=== PATIENT | male | born 1950 | race Caucasian/White ===

== ENCOUNTER 2020-12-23 10:01 | Inpatient (IN) ==
[2020-12-23] MEDS ORDERED: PIPERACILLIN SODIUM/TAZOBACTAM 3.375 GM in DEXTROSE 5% IN WATER 50 ML IV ONE (10:04)
--- NOTE | 2020-12-23 10:11 | Emergency Department Note ---
HPI <Christine Mcbride PA-C - Last Filed: 12/23/20 21:38> General Chief complaint: Wound/Laceration Stated complaint: Right foot wound Time Seen by Provider: 12/23/20 10:05 Mode of arrival: ambulatory History of Present Illness HPI Narrative: This patient presents from wound care with complaint of infection to the right foot. He has been following with wound care regarding this. He was seen today with concerns for osteomyelitis. Provider is able to probe to bone. Patient has known peripheral vascular disease and is currently everyday smoker. He is without fevers, chills, nausea or vomiting. He denies any trauma or injury. Related Data Home Medications Medication Instructions Recorded Confirmed Yarrow 1 tab PO QDAY 11/12/20 12/23/20 ascorbic acid (vitamin C) 1,000 mg 1 g PO QDAY tab 11/12/20 12/23/20 tablet omeprazole 20 mg tablet,delayed 20 mg PO QDAY 11/12/20 12/23/20 release alpha lipoic acid 600 mg capsule 600 mg PO QDAY 11/17/20 12/23/20 cinnachroma-chromium, vitamin D 2 tab PO DAILY 11/17/20 12/23/20 125mcg, vitamin K2, Selenium, vanadium, and cinnamon loratadine-pseudoephedrine ER 10 1 tab PO QDAY PRN 11/17/20 12/23/20 mg-240 mg tablet,extended [id number] testosterone wellness supplement 2 tab PO DAILY 11/17/20 12/23/20 veggies and fruits supplement 6 tab PO DAILY 11/17/20 12/23/20 Previous Rx's Medication Instructions Recorded blood sugar diagnostic #100 ea 11/17/20 blood-glucose meter #1 ea 11/17/20 lancets 33 gauge #100 ea 11/17/20 pioglitazone 30 mg tablet 30 mg PO QDAY #60 tab 11/17/20 glipizide 5 mg tablet 5 mg PO BID #120 tab 11/18/20 bupropion HCl 150 mg tablet,12 hr See Rx Instructions PO BID 90 Days 12/22/20 sustained-release #180 ea gabapentin 100 mg capsule 100 - 300 mg PO QHS #90 cap 12/23/20 Allergies Allergy/AdvReac Type Severity Reaction Status Date / Time No Known Drug Allergies Allergy Verified 12/23/20 10:08 Review of Systems <Christine Mcbride PA-C - Last Filed: 12/23/20 21:38> ROS ROS Narrative: Narrative: Pertinent positives and negatives as noted in HPI. All other systems reviewed and negative. PFSH <Christine Mcbride PA-C - Last Filed: 12/23/20 21:38> Narrative Patient History Narrative: Narrative: Medical/Surgical/Family History All Active Problems (Updated 12/23/20 @ 21:38 by Christine Mcbride PA-C) Osteomyelitis (Acute) GERD (gastroesophageal reflux disease) (Acute) Tobacco abuse (Chronic) Type 2 diabetes mellitus (Chronic) Hayfever (Acute) Diabetic foot ulcer (Acute) Medical History Hayfever Type 2 diabetes mellitus A1c improved 9.9% today States intolerance to Metformin Continue glipizide 5 mg twice daily and pioglitazone 30 mg daily Continue monitoring blood glucose twice daily Continue with heart specialist and dietitian Referred to optometry for diabetic eye exam Follow-up in 3 months with blood sugar logs Surgical History History of back surgery x 3, lover lumbar History of hernia surgery navel History of shoulder surgery Left Family History Uncle Type 2 diabetes mellitus Social History Smoking Status: Current every day smoker Alcohol Intake Frequency: 0-2 drinks per day Substance Use: does not use Exam <Christine Mcbride PA-C - Last Filed: 12/23/20 21:38> Narrative Narrative: Narrative: Vital signs noted General: no distress. Skin: Warm. Dry. No rash. Normal color. Eyes: PERRL. EOMI. Neck: Good ROM. No meningeal signs. Supple. Cardiovascular: Regular rate and rhythm. No murmur. Respiratory: No respiratory distress. Breath sounds equal. No wheezing/rales/rhonchi. Gastrointestinal: Abdomen soft. No tenderness. No distention. Normal bowel sounds. No rebound tenderness or guarding. Back: Normal inspection. No CVA tenderness. No midline tenderness. Extremities: Ulceration to the sole of the right foot. Bone can be probed. Warm. Neurological: No focal neurological deficits observed. Alert. Oriented x 3 Course <Christine Mcbride PA-C - Last Filed: 12/23/20 21:38> Course Course Narrative: An IV is established. Inflammatory markers are drawn. CT without contrast of the right foot and ankle are reported by radiology to be consistent with osteomyelitis as well as cellulitis. Inflammatory markers are elevated. I had offer to obtain blood cultures and wound cultures, however wound care advised this was not necessary. Vancomycin and Zosyn are requested. These medications are ordered and started for the patient while in the emergency department. He is discussed with the hospitalist service for admission of osteomyelitis Vital Signs Vital signs: Vital Signs Temperature 97.8 F 12/23/20 10:03 Pulse Rate 91 H 12/23/20 10:03 Respiratory Rate 18 12/23/20 10:03 Blood Pressure 126/77 12/23/20 10:03 Pulse Oximetry (%) 99 12/23/20 10:03 Temperature 98.3 F 12/24/20 04:00 Pulse Rate 82 12/24/20 04:00 Respiratory Rate 16 12/24/20 04:00 Blood Pressure 120/71 12/24/20 04:00 Pulse Oximetry (%) 95 12/24/20 04:00 <George Muse MD - Last Filed: 12/24/20 07:58> Vital Signs Vital signs: Vital Signs Temperature 97.8 F 12/23/20 10:03 Pulse Rate 91 H 12/23/20 10:03 Respiratory Rate 18 12/23/20 10:03 Blood Pressure 126/77 12/23/20 10:03 Pulse Oximetry (%) 99 12/23/20 10:03 Temperature 98.3 F 12/24/20 04:00 Pulse Rate 82 12/24/20 04:00 Respiratory Rate 16 12/24/20 04:00 Blood Pressure 120/71 12/24/20 04:00 Pulse Oximetry (%) 95 12/24/20 04:00 MDM <Christine Mcbride PA-C - Last Filed: 12/23/20 21:38> MDM Narrative Medical decision making narrative: Narrative: Lab Data Result diagrams: 12/24/20 05:35 12/24/20 05:34 Labs: Lab Results 12/23/20 12/23/20 Range/Units 10:22 10:22 WBC 9.6 (4.5-11.0) K/mcL RBC 4.78 (4.50-5.90) M/mcL Hgb 14.1 (13.5-16.5) g/dL Hct 42.1 (41.0-55.0) % MCV 88.1 (80.0-100.0) fL MCH 29.5 (26.0-34.0) pg MCHC 33.5 (31.0-36.0) g/dL RDW 12.4 (11.5-14.5) % Plt Count 378 (140-440) K/mcL MPV 9.7 (7.4-10.4) fL Neut % (Auto) 69.0 (38.0-78.0) % Lymph % (Auto) 17.1 (15.0-49.0) % [place] % (Auto) 11.7 (1.0-12.0) % Eos % (Auto) 2.0 (0.0-7.0) % Baso % (Auto) 0.2 (0.0-2.0) % Lymph # (Auto) 1.65 (1.50-4.80) K/mcL [place] # (Auto) 1.13 H (0.10-0.90) K/mcL Eos # (Auto) 0.19 (0.00-0.70) K/mcL Baso # (Auto) 0.02 (0.00-0.20) K/mcL Absolute Neutrophils 6.65 (1.80-8.00) K/mcL ESR 44 H (0-15) mm/hr Sodium 133 (133-145) mmol/L Potassium 4.0 (3.3-5.1) mmol/L Chloride 95 L (96-108) mmol/L Carbon Dioxide 26 (22-30) mmol/L Anion Gap 12.0 (8.0-16.0) BUN 12 (8-23) mg/dL Creatinine 0.7 (0.7-1.2) mg/dL GFR Calculation 94 Glucose 147 H (70-105) mg/dL Calcium 9.1 (8.6-10.4) mg/dL Total Bilirubin 0.4 (0.1-1.0) mg/dL AST 15 (<40) U/L ALT 9 (<40) U/L Alkaline Phosphatase 73 (39-117) U/L C-React Prot High Sens 119.3 H (1.0-3.0) mg/L Total Protein 7.4 (5.9-8.4) gm/dL Albumin 4.1 (3.2-5.2) gm/dL Globulin 3.3 (2.2-3.7) gm/dL Albumin/Globulin Ratio 1.2 (1.0-2.3) <George Muse MD - Last Filed: 12/24/20 07:58> Lab Data Labs: Lab Results 12/23/20 12/23/20 Range/Units 10:22 10:22 WBC 9.6 (4.5-11.0) K/mcL RBC 4.78 (4.50-5.90) M/mcL Hgb 14.1 (13.5-16.5) g/dL Hct 42.1 (41.0-55.0) % MCV 88.1 (80.0-100.0) fL MCH 29.5 (26.0-34.0) pg MCHC 33.5 (31.0-36.0) g/dL RDW 12.4 (11.5-14.5) % Plt Count 378 (140-440) K/mcL MPV 9.7 (7.4-10.4) fL Neut % (Auto) 69.0 (38.0-78.0) % Lymph % (Auto) 17.1 (15.0-49.0) % [place] % (Auto) 11.7 (1.0-12.0) % Eos % (Auto) 2.0 (0.0-7.0) % Baso % (Auto) 0.2 (0.0-2.0) % Lymph # (Auto) 1.65 (1.50-4.80) K/mcL [place] # (Auto) 1.13 H (0.10-0.90) K/mcL Eos # (Auto) 0.19 (0.00-0.70) K/mcL Baso # (Auto) 0.02 (0.00-0.20) K/mcL Absolute Neutrophils 6.65 (1.80-8.00) K/mcL ESR 44 H (0-15) mm/hr Sodium 133 (133-145) mmol/L Potassium 4.0 (3.3-5.1) mmol/L Chloride 95 L (96-108) mmol/L Carbon Dioxide 26 (22-30) mmol/L Anion Gap 12.0 (8.0-16.0) BUN 12 (8-23) mg/dL Creatinine 0.7 (0.7-1.2) mg/dL GFR Calculation 94 Glucose 147 H (70-105) mg/dL Calcium 9.1 (8.6-10.4) mg/dL Total Bilirubin 0.4 (0.1-1.0) mg/dL AST 15 (<40) U/L ALT 9 (<40) U/L Alkaline Phosphatase 73 (39-117) U/L C-React Prot High Sens 119.3 H (1.0-3.0) mg/L Total Protein 7.4 (5.9-8.4) gm/dL Albumin 4.1 (3.2-5.2) gm/dL Globulin 3.3 (2.2-3.7) gm/dL Albumin/Globulin Ratio 1.2 (1.0-2.3) Discharge Plan Patient/Caregiver Discharge Instructions Pt seen by [facility] [employer]/PA only: Yes Clinical Impression: Osteomyelitis Qualifiers: Osteomyelitis type: unspecified type Osteomyelitis location: foot Laterality: right Qualified Code(s): M86.9 - Osteomyelitis, unspecified Patient Disposition: Xfer As Inpt ([facility]) Discharge Date/Time: 12/23/20 15:48
[2020-12-23 11:14] LABS: Basophils # (Auto) 0.02 K/mcL (0.00-0.20); Basophils % (Auto) 0.2 % (0.0-2.0); Eosinophils # (Auto) 0.19 K/mcL (0.00-0.70); Hematocrit 42.1 % (41.0-55.0); Hemoglobin 14.1 g/dL (13.5-16.5); Lymphocytes # (Auto) 1.65 K/mcL (1.50-4.80); Lymphocytes % (Auto) 17.1 % (15.0-49.0); Mean Cell Volume 88.1 fL (80.0-100.0); Mean Corpuscular HGB Conc 33.5 g/dL (31.0-36.0); Mean Platelet Volume 9.7 fL (7.4-10.4); Monocytes # (Auto) 1.13 K/mcL (0.10-0.90); Monocytes % (Auto) 11.7 % (1.0-12.0); Platelet Count 378 K/mcL (140-440); RBC 4.78 M/mcL (4.50-5.90); Red Cell Distribution Width 12.4 % (11.5-14.5); WBC 9.6 K/mcL (4.5-11.0)
[2020-12-23 11:40] LABS: ALT/SGPT 9 U/L (<40); AST/SGOT 15 U/L (<40); Albumin 4.1 gm/dL (3.2-5.2); Albumin/Globulin Ratio 1.2 (1.0-2.3); Alkaline Phosphatase 73 U/L (39-117); Bilirubin,Total 0.4 mg/dL (0.1-1.0); Blood Urea Nitrogen 12 mg/dL (8-23); Calcium 9.1 mg/dL (8.6-10.4); Carbon Dioxide 26 mmol/L (22-30); Chloride 95 mmol/L (96-108); Globulin 3.3 gm/dL (2.2-3.7); Glomerular Filtration Rate 94; Glucose 147 mg/dL (70-105)
[2020-12-23 12:06] LABS: CRP,High Sensitivity 119.3 mg/L (1.0-3.0)
--- NOTE | 2020-12-23 12:26 | Cat Scan Report ---
CLINICAL INFORMATION: Probable osteomyelitis in the first and second proximal phalanges COMPARISON: Abdomen film 12/16/2020 TECHNIQUE: 0.625 mm helical slices were obtained through the distal one third of the tibia fibula through the foot and ankle. Following reconstruction, 2.5 m sagittal, coronal and axial reformatted images were processed and reviewed at bone and soft tissue windows. FINDINGS: Bone windows show severe hammertoe deformities the first through fifth digits. Complete erosion first proximal phalanx dorsal base and partial erosion of the plantar base appreciated. There is also moderate erosive changes in the medial and lateral sesamoids of the first metatarsal head. In the second digit, moderate erosion of the dorsal cortex of the distal aspect of the proximal phalanx noted. No other osseous abnormality. There is moderate spurring of the plantar and mild spurring of the Achilles tendon insertion on the calcaneus.. Moderate degenerative change in all interphalangeal and first MTP joints. Moderate cellulitis and fasciitis seen throughout the forefoot and midfoot. No evidence of soft tissue abscess or foreign body. There are is a plantar cutaneous ulceration over the first metatarsal head. IMPRESSION: 1. Moderate erosive changes of the plantar and dorsal base of the first proximal phalanx. This is supportive of osteomyelitis. 2. Moderate erosion dorsal cortex of the distal aspect of the second proximal phalanx which may be related old trauma or, less likely, osteomyelitis. 3. Marked hammertoe deformities-first through fifth digits 4. Marked cellulitis and fasciitis-forefoot and midfoot. Interpreted and Authenticated by: Livan Arnold 12/23/20
[2020-12-23 12:30] LABS: Erythrocyte Sedimentation Rate 44 mm/hr (0-15)
[2020-12-23] MEDS ORDERED: NICOTINE 14 MG PATCH TOPICAL ONE (14:19)
[2020-12-23] MEDS ORDERED: ONDANSETRON 4 MG/2 ML VIAL IV PRN (19:17)
[2020-12-23] MEDS ORDERED: ACETAMINOPHEN 325 MG TABLET PO PRN (19:18)
[2020-12-23] MEDS ORDERED: VANCOMYCIN PER PHARMACY IV SCH (19:18)
[2020-12-23] MEDS ORDERED: DEXTROSE 31 GM ORAL.SUSP PO PRN (19:18)
[2020-12-23] MEDS ORDERED: oxyCODONE/APAP 5/325MG TABLET PO PRN (19:18)
[2020-12-23] MEDS ORDERED: DEXTROSE 50% 50 ML VIAL IV PRN (19:18)
--- NOTE | 2020-12-23 19:37 | Internal Med History&Physical ---
HPI History of Present Illness Patient information: Note initiated : 12/23/20 at 7:23 pm Service Date, if different from initiated Date: [] Patient: John Schuster 70 y/o M admitted on 12/23/20 for Right foot wound. Chief Complaint: [] History of present illness: Mr. Schuster is a 70 year old male with a history of diabetes mellitus type 2 on oral medications, tobacco use disorder, nonhealing right diabetic foot wound being followed by wound care clinic now admitted for other management diabetic foot wound which is now complicated by osteomyelitis of the first proximal phalanx of the right foot as well as second proximal phalanx. Patient endorses chills and high-grade temperatures but has not had a fever. In the ED, there was no leukocytosis, routine lab work was fairly unremarkable, CRP was 119. Patient's last hemoglobin was 9.9. Review of systems Constitutional: positive for chills, no fever, fatigue, or weight loss Eyes: no vision changes or pain Cardiovascular: no chest pain, no palpitations Respiratory: no cough or dyspnea Gastrointestinal: no abdominal pain, no nausea, vomiting, or diarrhea Genitourinary: no dysuria or difficulty voiding Musculoskeletal: positive for claudication Integumentary: nonhealing right foot wound Neurological: no focal weakness or numbness Psychiatric: no anxiety or depression Physical exam Head: Atraumatic, normal inspection. Eyes: normal appearance, no scleral icterus. Neck: full ROM Respiratory: no respiratory distress. Cardiovascular: normal rate and rhythm, S1, S2. GI/Abdominal: soft, nontender, no guarding. Extremities: Right distal foot cellulitis at first and second toes, chronic appearing wound at plantar aspect of first metatarsal phalangeal jount. Neurological: CN II-XII intact, intact motor, intact sensation. Psychiatric: normal mood. Skin: warm, normal color PFSH PFSH All Active Problems GERD (gastroesophageal reflux disease) (Acute) Tobacco abuse (Chronic) Type 2 diabetes mellitus (Chronic) Hayfever (Acute) Diabetic foot ulcer (Acute) Medical History Hayfever Type 2 diabetes mellitus A1c improved 9.9% today States intolerance to Metformin Continue glipizide 5 mg twice daily and pioglitazone 30 mg daily Continue monitoring blood glucose twice daily Continue with nursing educator and dietitian Referred to optometry for diabetic eye exam Follow-up in 3 months with blood sugar logs Surgical History History of back surgery x 3, lover lumbar History of hernia surgery navel History of shoulder surgery Left Family History Uncle Type 2 diabetes mellitus Social History marital status: occupational status: retired smoking status: Current every day smoker alcohol intake frequency: 0-2 drinks per day substance use type: does not use MEDS/ALLERGIES Home Medications and Allergies Home Medications Medication Instructions Recorded Confirmed Type Yarrow 1 tab PO QDAY 11/12/20 12/23/20 History ascorbic acid (vitamin C) 1,000 mg 1 g PO QDAY tab 11/12/20 12/23/20 History tablet omeprazole 20 mg tablet,delayed 20 mg PO QDAY 11/12/20 12/23/20 History release alpha lipoic acid 600 mg capsule 600 mg PO QDAY 11/17/20 12/23/20 History blood sugar diagnostic #100 ea 11/17/20 12/23/20 Rx blood-glucose meter #1 ea 11/17/20 12/23/20 Rx cinnachroma-chromium, vitamin D 2 tab PO DAILY 11/17/20 12/23/20 History 125mcg, vitamin K2, Selenium, vanadium, and cinnamon lancets 33 gauge #100 ea 11/17/20 12/23/20 Rx loratadine-pseudoephedrine ER 10 1 tab PO QDAY PRN 11/17/20 12/23/20 History mg-240 mg tablet,extended [id number] pioglitazone 30 mg tablet 30 mg PO QDAY #60 tab 11/17/20 12/23/20 Rx testosterone wellness supplement 2 tab PO DAILY 11/17/20 12/23/20 History veggies and fruits supplement 6 tab PO DAILY 11/17/20 12/23/20 History glipizide 5 mg tablet 5 mg PO BID #120 tab 11/18/20 12/23/20 Rx bupropion HCl 150 mg tablet,12 hr See Rx Instructions PO BID 90 Days 12/22/20 12/23/20 Rx sustained-release #180 ea gabapentin 100 mg capsule 100 - 300 mg PO QHS #90 cap 12/23/20 12/23/20 Rx Allergies Allergy/AdvReac Type Severity Reaction Status Date / Time No Known Drug Allergies Allergy Verified 12/23/20 10:08 EXAM Constitutional Vitals: Temp Pulse Resp BP Pulse Ox 97.6 F 72 16 125/72 95 12/23/20 15:48 12/23/20 15:48 12/23/20 15:48 12/23/20 15:48 12/23/20 15:48 DATA Data Completed and Pending Labs: Labs from last 24 hours 12/23/20 12/23/20 10:22 10:22 WBC 9.6 RBC 4.78 Hgb 14.1 Hct 42.1 MCV 88.1 MCH 29.5 MCHC 33.5 RDW 12.4 Plt Count 378 MPV 9.7 Neut % (Auto) 69.0 Lymph % (Auto) 17.1 [place] % (Auto) 11.7 Eos % (Auto) 2.0 Baso % (Auto) 0.2 Lymph # (Auto) 1.65 [place] # (Auto) 1.13 H Eos # (Auto) 0.19 Baso # (Auto) 0.02 Absolute Neutrophils 6.65 ESR 44 H Sodium 133 Potassium 4.0 Chloride 95 L Carbon Dioxide 26 Anion Gap 12.0 BUN 12 Creatinine 0.7 GFR Calculation 94 Glucose 147 H Calcium 9.1 Total Bilirubin 0.4 AST 15 ALT 9 Alkaline Phosphatase 73 C-React Prot High Sens 119.3 H Total Protein 7.4 Albumin 4.1 Globulin 3.3 Albumin/Globulin Ratio 1.2 A/P Narrative A/P Narrative: Assessment: 70 year old male with a history of diabetes mellitus type 2 on oral medications, tobacco use disorder, nonhealing right diabetic foot complicated by probable osteomyelitis of first proximal phalanx and possibly the second proximal phalanx admitted for further evaluation and management. #Nonhealing diabetic right foot wound #Probable osteomyelitis of right first phalanx #Possible osteomyelitis of right second phalanx #Right foot cellulitis secondary to chronic wound #Probable peripheral arterial disease #Diabetes mellitus type II-Hgb A1C 9.9 #Tobacco use disorder Plan -Arterial Brachial Index, expand vascular workup if positive KIMANI. -Wound swab MRSA screen -Vancomycin IV per pharmacy, Cefepime IV, Flagyl IV. -SSI-low, consider adding basal insulin. -Hold home glipizide and pioglitazone. -Analgesics prn. -NPO at midnight. -Nicotine patch/gum. -Wound surgery consult-please consider obtaining proximal margin surgical cultures in case of amputation for osteomyelitis. -Code status: Full -Disposition: TBD Time Spent With Patient Time: Total time spent is greater than 50% in coordination of care (as documented) at patient's floor/unit and/or counseling patient: QUALITY Stroke Symptom Onset Unknown: No VTE Deep Vein Thrombosis/Pulmonary Embolism Present on Admission: Yes
[2020-12-23] MEDS ORDERED: NICOTINE POLACRILEX 2 MG GUM CHEW/PARK PRN (19:56)
[2020-12-23] MEDS: NICOTINE 14 MG PATCH TOPICAL SCH (20:09)
--- NOTE | 2020-12-23 20:39 | General Surgery Consult Note ---
HPI Data of Consult Consult date: 12/23/20 Requesting physician: Antony Elliott Primary Care Provider: Livan Jennings DO Consult Narrative Patient Information: Note initiated : 12/23/20 at 8:17 pm Service Date, if different from initiated Date: [] Patient: John Schuster 70 y/o M admitted on 12/23/20 for CELLULITIS around DFU Roberts 3, Plantar Right foot under 1st MPJ Chief Complaint: [70/M Established patient at wound care center. Was noted to have acute deterioration of his wound with foul odor from the wound and cellulitis involving great toe and proximal forefoot. ] Chief complaint: Infected DFU plantar RIGHT great toe MPJ. Cellulitis, Foul odor with eschar Reason for consult: Wound Care and possible surgery after pre op vascular assessment. cc:: CC: Antony Elliott MD Constitutional Constitutional: Present chills and fever(s) Additional comments: Foul odor from ulcer and wound bed. Integumentary Integumentary: Present as per HPI and wounds Additional comments: DFU Roberts Stage 3. Probes to bone. Foul odor. Cellulitis around base of RIGHT great toe extending proximally. Neurological Additional comments: Diabetes with peripheral neuropathy PFSH PFSH All Active Problems (Updated 12/23/20 @ 21:38 by Christine Mcbride PA-C) Osteomyelitis (Acute) GERD (gastroesophageal reflux disease) (Acute) Tobacco abuse (Chronic) Type 2 diabetes mellitus (Chronic) Hayfever (Acute) Diabetic foot ulcer (Acute) Medical History Hayfever Type 2 diabetes mellitus A1c improved 9.9% today States intolerance to Metformin Continue glipizide 5 mg twice daily and pioglitazone 30 mg daily Continue monitoring blood glucose twice daily Continue with family life educator and dietitian Referred to optometry for diabetic eye exam Follow-up in 3 months with blood sugar logs Surgical History History of back surgery x 3, lover lumbar History of hernia surgery navel History of shoulder surgery Left Family History Uncle Type 2 diabetes mellitus Social History marital status: occupational status: retired smoking status: Current every day smoker alcohol intake frequency: 0-2 drinks per day substance use type: does not use MEDS/ALLERGIES Home Medications and Allergies Home Medications Medication Instructions Recorded Confirmed Type Yarrow 1 tab PO QDAY 11/12/20 12/23/20 History ascorbic acid (vitamin C) 1,000 mg 1 g PO QDAY tab 11/12/20 12/23/20 History tablet omeprazole 20 mg tablet,delayed 20 mg PO QDAY 11/12/20 12/23/20 History release alpha lipoic acid 600 mg capsule 600 mg PO QDAY 11/17/20 12/23/20 History blood sugar diagnostic #100 ea 11/17/20 12/23/20 Rx blood-glucose meter #1 ea 11/17/20 12/23/20 Rx cinnachroma-chromium, vitamin D 2 tab PO DAILY 11/17/20 12/23/20 History 125mcg, vitamin K2, Selenium, vanadium, and cinnamon lancets 33 gauge #100 ea 11/17/20 12/23/20 Rx loratadine-pseudoephedrine ER 10 1 tab PO QDAY PRN 11/17/20 12/23/20 History mg-240 mg tablet,extended [id number] pioglitazone 30 mg tablet 30 mg PO QDAY #60 tab 11/17/20 12/23/20 Rx testosterone wellness supplement 2 tab PO DAILY 11/17/20 12/23/20 History veggies and fruits supplement 6 tab PO DAILY 11/17/20 12/23/20 History glipizide 5 mg tablet 5 mg PO BID #120 tab 11/18/20 12/23/20 Rx bupropion HCl 150 mg tablet,12 hr See Rx Instructions PO BID 90 Days 12/22/20 12/23/20 Rx sustained-release #180 ea gabapentin 100 mg capsule 100 - 300 mg PO QHS #90 cap 12/23/20 12/23/20 Rx Allergies Allergy/AdvReac Type Severity Reaction Status Date / Time No Known Drug Allergies Allergy Verified 12/23/20 10:08 Physical Examination Vital Signs Vital signs: Temp Pulse Resp BP Pulse Ox 97.6 F 72 16 125/72 95 12/23/20 15:48 12/23/20 15:48 12/23/20 15:48 12/23/20 15:48 12/23/20 15:48 General physical appearance General physical exam: well developed, well nourished, no distress and no pain Eyes Eye exam: PERRL and normal ocular movement ENT ENT exam: normal pinna, normal nares and no congestion Head Head exam IM: Present atraumatic and normocephalic Neck Neck exam: no masses and no venous distension Cardiovascular Cardiovascular exam IM: Present normal rate and rhythm Peripheral pulses: 2+: dorsalis pedis (R) and posterior tibialis (L) Respiratory Respiratory exam: normal expansion and clear to auscultation Abdomen Abdomen: Present soft, non tender and bowel sounds Integumentary Integumentary: Present other (Open plantar wound DFU Stage 3 Probes to synovium and joint capsule. ) Neurologic Neurologic: Present other (NO gross lateralizing signs. Peripheral neuropathy) Musculoskeletal Musculoskeletal: Present normal gait and other (OPEN wound under RIGHT great toe probes to MPJ. Slough in wound bed. ) Psychiatric Psychiatric: Present oriented to time, oriented to person, oriented to place, speech is normal and memory intact Results Labs Result diagrams: 12/24/20 05:35 12/24/20 05:34 Labs: Abnormal lab results 12/23/20 12/23/20 Range/Units 10:22 10:22 [place] # (Auto) 1.13 H (0.10-0.90) K/mcL ESR 44 H (0-15) mm/hr Chloride 95 L (96-108) mmol/L Glucose 147 H (70-105) mg/dL C-React Prot High Sens 119.3 H (1.0-3.0) mg/L Diabetes panel 12/23/20 Range/Units 10:22 Sodium 133 (133-145) mmol/L Potassium 4.0 (3.3-5.1) mmol/L Chloride 95 L (96-108) mmol/L Carbon Dioxide 26 (22-30) mmol/L BUN 12 (8-23) mg/dL Creatinine 0.7 (0.7-1.2) mg/dL Glucose 147 H (70-105) mg/dL Calcium 9.1 (8.6-10.4) mg/dL AST 15 (<40) U/L ALT 9 (<40) U/L Alkaline Phosphatase 73 (39-117) U/L Total Protein 7.4 (5.9-8.4) gm/dL Albumin 4.1 (3.2-5.2) gm/dL Calcium panel 12/23/20 Range/Units 10:22 Calcium 9.1 (8.6-10.4) mg/dL Albumin 4.1 (3.2-5.2) gm/dL Pituitary panel 12/23/20 Range/Units 10:22 Sodium 133 (133-145) mmol/L Potassium 4.0 (3.3-5.1) mmol/L Chloride 95 L (96-108) mmol/L Carbon Dioxide 26 (22-30) mmol/L BUN 12 (8-23) mg/dL Creatinine 0.7 (0.7-1.2) mg/dL Glucose 147 H (70-105) mg/dL Calcium 9.1 (8.6-10.4) mg/dL Adrenal panel 12/23/20 Range/Units 10:22 Sodium 133 (133-145) mmol/L Potassium 4.0 (3.3-5.1) mmol/L Chloride 95 L (96-108) mmol/L Carbon Dioxide 26 (22-30) mmol/L BUN 12 (8-23) mg/dL Creatinine 0.7 (0.7-1.2) mg/dL Glucose 147 H (70-105) mg/dL Calcium 9.1 (8.6-10.4) mg/dL Total Bilirubin 0.4 (0.1-1.0) mg/dL AST 15 (<40) U/L ALT 9 (<40) U/L Alkaline Phosphatase 73 (39-117) U/L Total Protein 7.4 (5.9-8.4) gm/dL Albumin 4.1 (3.2-5.2) gm/dL All other labs normal. A/P Narrative A/P Narrative: Assessment: DFU Stage 3 RIGHT plantar under MPJ peripheral neuropathy PAD. Awaits evaluation and / or treatment by Dr. CHAVARRIA Nicotine dependence, Alcohol consumption daily Plan: MIST treatment and aggressive local wound care Physical therapy consult for off loading and roll about scooter PICC LINE , IV antibiotics Start with broad coverage, Deescalate per culture reports. I D consult Dr. Almeida, when he is back in town. Time Spent With Patient Time: Total time spent is greater than 50% in coordination of care (as documented) at patient's floor/unit and/or counseling patient: Total time spent with greater than 50% in coordination of care (as documented) at patient's floor/unit and/or counseling patient:: 25 - 35 minutes
[2020-12-23] MEDS: INSULIN LISPRO 1 UNIT/0.01 ML UNIT SQ SCH (21:29)
[2020-12-23] MEDS: SENNOSIDES 1 TABLET PO SCH (21:30)
[2020-12-23] MEDS: DOCUSATE SODIUM 100 MG CAPSULE PO SCH (21:30)
[2020-12-23] MEDS: VANCOMYCIN 1,000 MG in 0.9 % SODIUM CHLORIDE 250 ML IV SCH (21:32)
[2020-12-23] MEDS: CEFEPIME 2 GM VIAL IV SCH (22:45)
[2020-12-23] MEDS: 0.9 % SODIUM CHLORIDE 10 ML SYRINGE IV SCH (22:45)
[2020-12-23] MEDS: metroNIDAZOLE 500 MG/100 ML BAG IV SCH (22:50)
[2020-12-24] MEDS: CEFEPIME 2 GM VIAL IV SCH ×3 (05:21→21:56)
[2020-12-24] MEDS: 0.9 % SODIUM CHLORIDE 10 ML SYRINGE IV SCH ×5 (05:22→21:58)
[2020-12-24 06:58] LABS: Hematocrit 36.1 % (41.0-55.0); Hemoglobin 12.6 g/dL (13.5-16.5); Mean Corpuscular HGB Conc 34.9 g/dL (31.0-36.0); Mean Platelet Volume 9.4 fL (7.4-10.4); Platelet Count 336 K/mcL (140-440); Red Cell Distribution Width 12.2 % (11.5-14.5); WBC 9.3 K/mcL (4.5-11.0)
[2020-12-24] MEDS: metroNIDAZOLE 500 MG/100 ML BAG IV SCH ×3 (07:17→23:11)
[2020-12-24] MEDS: INSULIN LISPRO 1 UNIT/0.01 ML UNIT SQ SCH ×4 (07:24→21:24)
[2020-12-24 07:47] LABS: ALT/SGPT 9 U/L (<40); AST/SGOT 13 U/L (<40); Albumin 3.6 gm/dL (3.2-5.2); Albumin/Globulin Ratio 1.3 (1.0-2.3); Alkaline Phosphatase 62 U/L (39-117); Bilirubin,Total 0.4 mg/dL (0.1-1.0); Blood Urea Nitrogen 10 mg/dL (8-23); Calcium 8.7 mg/dL (8.6-10.4); Carbon Dioxide 25 mmol/L (22-30); Chloride 99 mmol/L (96-108); Globulin 2.7 gm/dL (2.2-3.7); Glomerular Filtration Rate 94; Glucose 139 mg/dL (70-105)
[2020-12-24 07:53] LABS: Eosinophils % (Manual) 3 % (0-7); Lymphocytes % 20 % (15-49); Monocytes % (Manual) 10 % (1-12); Platelet Estimate NORMAL (Normal); RBC Morphology NORMAL (Normal); Reactive Lymphocytes 1 % (0-2); Segmented Neutrophils % 66 % (38-78)
[2020-12-24] MEDS ORDERED: 0.9 % SODIUM CHLORIDE 10 ML SYRINGE IV PRN (08:15)
[2020-12-24] MEDS: DOCUSATE SODIUM 100 MG CAPSULE PO SCH ×2 (09:00→21:24)
[2020-12-24] MEDS: VANCOMYCIN 1,000 MG in 0.9 % SODIUM CHLORIDE 250 ML IV SCH ×2 (09:01→21:57)
--- NOTE | 2020-12-24 09:18 | General Surgery Progress Note ---
SUBJECTIVE Subjective Patient information: Note initiated : 12/24/20 at 9:15 am Service Date, if different from initiated Date: [] Patient: John Schuster 70 y/o M admitted on 12/23/20 for Right foot wound. Chief Complaint: [] Additional PMFSH (Level 3 Only): Patient had an uneventful night. Tolerating IV antibiotics without any problems. Redness and warmth around the toe and foot is improving. Constitutional Vitals: Vital Signs Temp Pulse Resp BP Pulse Ox 98.5 F 87 16 111/69 96 12/24/20 08:00 12/24/20 08:00 12/24/20 08:00 12/24/20 08:00 12/24/20 08:00 Period Temp Pulse Resp BP Sys/Peña Pulse Ox Last 24 Hr 97.6 F-100 F 72-92 16-18 94-135/59-82 95-99 Intake and Output 12/23/20 12/24/20 12/24/20 21:59 05:59 13:59 Intake Total 120 650 100 Output Total 400 Balance -280 650 100 Weight 161 lb 9.6 oz Intake & Output: Intake & Output 12/23/20 12/24/20 12/24/20 21:59 05:59 13:59 Intake Total 120 650 100 Output Total 400 Balance -280 650 100 Weight 161 lb 9.6 oz Intake: IV 350 100 Vancomycin 1,000 mg In Sodium 250 Chloride 0.9% 250 ml @ 250 mls/ hr IV Q12H [facility] Rx#:[id number] Oral 120 300 Output: Void Amount 400 Other: Meal Dinner Percent of Meal Consumed 100% Feeding Ability Independent Urine Appearance Clear Urine Color Pale Urine Odor Normal Stool Size Smear Stool Color Brown Stool Consistency Formed # Voids 1 1 # Bowel Movements 1 General appearance: cooperative and no acute distress Exam: AVSS. NO changes BRIANA. Wound examined along with Gerhard WELDON, In Patient wound care nurse. Proceeded to dbride this at bedside without anesthesia. Tissue sent for c/s. Treatment plan discussed with Gerhard WELDON and Zeinab WELDON floor nurse. A/P Narrative A/P Narrative: Assessment: DFU Roberts 3 plantar Right foot under MPJ Stable. Cellulitis improving. Responding to treatment Bed side debridement performed. Tissue sent for c/s. Spoke with and case d/w Dr. CHAVARRIA Plan: Await c/s results. Later deescalate antibiotic therapy. Physical Therapy consult for FOOT and LEG quality consultant / scooter NWB and full off loading of foot. MIST therapy with VASHE for DFU once a day. Patient to see Dr. CHAVARRIA for PAD assessment and treatment Time Spent With Patient Time: Total time spent is greater than 50% in coordination of care (as documented) at patient's floor/unit and/or counseling patient: Total time spent with greater than 50% in coordination of care (as documented) at patient's floor/unit and/or counseling patient:: 25 - 35 minutes
--- NOTE | 2020-12-24 09:35 | Brief Operative Note ---
Brief Operative Note Date of procedure: 12/24/20 Pre-op diagnosis: DFU Roberts 3 under RIGHT foot MPJ Post-op diagnosis: same Procedure: Bedside debridement and tissue sample for c/s. Grafts/Implants: No Anesthesia: none Complications: none Surgeon: Khadar Bashir Estimated blood loss (cc): 0 Specimens Removed/Pathology: other (Tissue for c/s. Plantar DFU Right foot W3 great toe MPJ ) Condition: stable Disposition: floor
[2020-12-24] MEDS: NICOTINE 14 MG PATCH TOPICAL SCH (10:02)
--- NOTE | 2020-12-24 10:27 | Progress Note ---
DATE OF VISIT: 12/24/2020 PREOPERATIVE DIAGNOSIS: Diabetic foot ulcer, Roberts 3 under right great toe MP joint with cellulitis of the toe and proximal foot. POSTOPERATIVE DIAGNOSES: Diabetic foot ulcer, Roberts 3 under right great toe MP joint with cellulitis of the toe and proximal foot. PROCEDURE: Bedside debridement of the wound and tissue obtained for culture and sensitivity. ANESTHESIA: None. ESTIMATED BLOOD LOSS: Zero. INSTRUMENT COUNT: Count of all swabs, instruments and needles was reported to be correct. PROCEDURE IN DETAIL: I obtained the patient's verbal consent. I carried out this procedure at the bedside with assistance from SHIRAZ Hennessy, Inpatient Wound Care nurse. The area was cleaned with chlorhexidine, prepped, and draped in the standard fashion. No anesthesia was used. The necrotic tissue around the ulcer base was sharply excised with pickup and scissors. Health Services Director sample of tissue was sent for culture and sensitivity. We dressed this wound with Exufiber AG gauze, Kerlix, and Farrukh wrap. VD:tray Job ID: [id number] Doc ID: [id number] Khadar Bashir MD MTDD
--- NOTE | 2020-12-24 19:01 | Internal Med Progress Note ---
SUBJECTIVE Subjective Patient information: Note initiated : 12/24/20 at 7:01 pm Service Date, if different from initiated Date: [] Patient: John Schuster 70 y/o M admitted on 12/23/20 for Right foot wound. Chief Complaint: [] Interval history: Mr. Schuster is a 70 year old male with a history of diabetes mellitus type 2 on oral medications, tobacco use disorder, nonhealing right diabetic foot wound being followed by wound care clinic now admitted for other management diabetic foot wound which is now complicated by osteomyelitis of the first proximal phalanx of the right foot as well as second proximal phalanx. Patient endorses chills and high-grade temperatures but has not had a fever. In the ED, there was no leukocytosis, routine lab work was fairly unremarkable, CRP was 119. Patient's last hemoglobin was 9.9. Review of systems: negative for fever, chest pain, abdominal pain, shortness of breath Physical exam Head: Atraumatic, normal inspection. Eyes: normal appearance, no scleral icterus. Neck: full ROM Respiratory: no respiratory distress. Cardiovascular: normal rate and rhythm, S1, S2. GI/Abdominal: soft, nontender, no guarding. Extremities: Right distal foot cellulitis improving, bandage over wound at plantar aspect of first metatarsal phalangeal joint. Neurological: CN II-XII intact, intact motor, intact sensation. Psychiatric: normal mood. Skin: warm, normal color Constitutional Vitals: Vital Signs Temp Pulse Resp BP Pulse Ox 98.2 F 91 H 16 122/73 96 12/24/20 16:00 12/24/20 16:00 12/24/20 16:00 12/24/20 16:00 12/24/20 16:00 Period Temp Pulse Resp BP Sys/Peña Pulse Ox Last 24 Hr 97.9 F-98.7 F 81-91 16-16 104-122/64-73 95-97 Intake and Output 12/24/20 12/24/20 12/24/20 05:59 13:59 21:59 Intake Total 650 950 900 Balance 650 950 900 Weight 73.301 kg Patient Weight 12/25/20 05:59 Weight 73.301 kg Intake & Output: Intake & Output 12/24/20 12/24/20 12/24/20 05:59 13:59 21:59 Intake Total 650 950 900 Balance 650 950 900 Weight 73.301 kg Intake: IV 350 350 100 Vancomycin 1,000 mg In Sodium 250 250 Chloride 0.9% 250 ml @ 250 mls/ hr IV Q12H [facility] Rx#:[id number] Oral 300 600 800 Other: Meal Lunch Dinner Percent of Meal Consumed 100% 75% Feeding Ability Independent Independent Stool Size Smear Stool Color Brown Stool Consistency Formed # Voids 1 1 2 # Bowel Movements 1 OBJ DATA Labs CBC & Chem 7: 12/24/20 05:35 12/24/20 05:34 Labs: Abnormal Lab Results 12/24/20 12/24/20 12/23/20 05:35 05:34 10:22 RBC 4.20 L Hgb 12.6 L Hct 36.1 L [place] # (Auto) ESR Chloride 95 L Glucose 139 H 147 H C-React Prot High Sens 119.3 H 12/23/20 10:22 RBC Hgb Hct [place] # (Auto) 1.13 H ESR 44 H Chloride Glucose C-React Prot High Sens Meds: Medications Acetaminophen (Acetaminophen 325 Mg Tablet) 650 mg PO Q6HP PRN; Protocol PRN Reason: Per Pain Protocol/Fever > 101 Cefepime HCl (Cefepime 2 Gm Vial) 2 gm IV Q8H [facility]; Protocol Last Admin: 12/24/20 14:39 Dose: 2 gm Documented by: Dextrose (Dextrose 50% 50 Ml Vial) 0 ml IV UD PRN PRN Reason: Hypoglycemia Diagnostic Test (Pha) (Accu-Chek 1 Each Strip) 1 each FS ACHS [facility] Last Admin: 12/24/20 17:09 Dose: 1 each Documented by: Docusate Sodium (Docusate Sodium 100 Mg Capsule) 100 mg PO BID [facility] Last Admin: 12/24/20 09:00 Dose: 100 mg Documented by: Glucose (Dextrose 31 Gm Oral.Susp) 15 gm PO PRN PRN PRN Reason: Hypoglycemia Heparin Sodium (Porcine) (Heparin Flush 10 Units/Ml 5 Ml Syringe) 2 ml IV Q12 [facility] Last Admin: 12/24/20 09:14 Dose: Not Given Documented by: Metronidazole (Flagyl) 500 mg in 100 mls @ 100 mls/hr IV Q8H [facility]; Protocol Last Infusion: 12/24/20 15:40 Dose: Infused Documented by: Vancomycin HCl 1,000 mg/ (Sodium Chloride) 250 mls @ 250 mls/hr IV Q12H [facility] Last Infusion: 12/24/20 10:40 Dose: Infused Documented by: Insulin Human Lispro (Insulin Lispro 1 Unit/0.01 Ml Unit) 0 unit SQ ACHS [facility]; Protocol Last Admin: 12/24/20 17:10 Dose: 2 units Documented by: Nicotine (Nicotine 14 Mg Patch) 14 mg TOPICAL DAILY@1000 [facility] Last Admin: 12/24/20 10:02 Dose: 14 mg Documented by: Nicotine Polacrilex (Nicotine Polacrilex 2 Mg Gum) 2 mg CHEW/PARK Q1HP PRN PRN Reason: Severe nicotine cravings Ondansetron HCl (Ondansetron 4 Mg/2 Ml Vial) 4 mg IV Q6HP PRN PRN Reason: Nausea And Vomiting Oxycodone/Acetaminophen (Oxycodone/Apap 5/325mg Tablet) 1 tab PO Q4HP PRN; Protocol PRN Reason: Per Pain Protocol Senna (Sennosides 1 Tablet) 2 tab PO HS [facility] Last Admin: 12/23/20 21:30 Dose: 2 tab Documented by: Sodium Chloride (0.9 % Sodium Chloride 10 Ml Syringe) 10 ml IV Q8 [facility] Last Admin: 12/24/20 14:39 Dose: 10 ml Documented by: Sodium Chloride (0.9 % Sodium Chloride 10 Ml Syringe) 10 ml IV UD PRN PRN Reason: FLUSH Sodium Chloride (0.9 % Sodium Chloride 10 Ml Syringe) 10 ml IV Q12 [facility] Last Admin: 12/24/20 09:01 Dose: 10 ml Documented by: Vancomycin HCl (Vancomycin Per Pharmacy) 1 order IV UD [facility]; Protocol A/P Narrative A/P Narrative: Assessment: 70 year old male with a history of diabetes mellitus type 2 on oral medications, tobacco use disorder, nonhealing right diabetic foot complicated by probable osteomyelitis of first proximal phalanx and possibly the second proximal phalanx admitted for further evaluation and management. #Nonhealing diabetic right foot wound #Probable osteomyelitis of right first phalanx #Possible osteomyelitis of right second phalanx #Right foot cellulitis secondary to chronic wound #Peripheral arterial disease #Diabetes mellitus type II-Hgb A1C 9.9 #Tobacco use disorder Plan -Vancomycin IV per pharmacy, Cefepime IV, Flagyl IV. -Follow wound culture. -Start Lantus HS, continue SSI-low. -Hold home glipizide and pioglitazone. -Analgesics prn. -Diabetic diet. -Nicotine patch/gum. -Wound care surgery following. -Code status: Full -Disposition: Probably discharge home on IV antibiotic treatment via PICC and follow up with ID for abx management and IR for peripheral arterial disease. Time Spent With Patient Time: Total time spent is greater than 50% in coordination of care (as documented) at patient's floor/unit and/or counseling patient: QUALITY Stroke Symptom Onset Unknown: No VTE Deep Vein Thrombosis/Pulmonary Embolism Present on Admission: Yes
[2020-12-24] MEDS ORDERED: INSULIN GLARGINE, HUMAN 1 UNIT/0.01 ML SQ SCH (21:00)
[2020-12-24] MEDS: SENNOSIDES 1 TABLET PO SCH (21:24)
[2020-12-25] MEDS: 0.9 % SODIUM CHLORIDE 10 ML SYRINGE IV SCH ×3 (06:01→15:00)
[2020-12-25] MEDS: CEFEPIME 2 GM VIAL IV SCH (06:01)
[2020-12-25] MEDS: metroNIDAZOLE 500 MG/100 ML BAG IV SCH (07:08)
[2020-12-25] MEDS: INSULIN LISPRO 1 UNIT/0.01 ML UNIT SQ SCH ×2 (07:10→11:24)
[2020-12-25] MEDS: DOCUSATE SODIUM 100 MG CAPSULE PO SCH (08:40)
[2020-12-25] MEDS ORDERED: ERTAPENEM 1 GM in 0.9 % SODIUM CHLORIDE 50 ML IV SCH (09:00)
[2020-12-25] MEDS: NICOTINE 14 MG PATCH TOPICAL SCH (10:11)
--- NOTE | 2020-12-25 10:48 | General Surgery Progress Note ---
SUBJECTIVE Subjective Patient information: Note initiated : 12/25/20 at 10:46 am Service Date, if different from initiated Date: [] Patient: John Schuster 70 y/o M admitted on 12/23/20 for Right foot wound. Chief Complaint: [] Additional PMFSH (Level 3 Only): Patient had an uneventful night. Constitutional Vitals: Vital Signs Temp Pulse Resp BP Pulse Ox 97.1 F 84 16 98/61 95 12/25/20 07:51 12/25/20 07:51 12/25/20 07:51 12/25/20 07:51 12/25/20 07:51 Period Temp Pulse Resp BP Sys/Peña Pulse Ox Last 24 Hr 97.1 F-98.6 F 81-91 12-16 98-122/61-73 95-97 Intake and Output 12/24/20 12/25/20 12/25/20 21:59 05:59 13:59 Intake Total 900 830 150 Balance 900 830 150 Weight 165 lb Intake & Output: Intake & Output 12/24/20 12/25/20 12/25/20 21:59 05:59 13:59 Intake Total 900 830 150 Balance 900 830 150 Weight 165 lb Intake: IV 100 350 150 INVanz 1 GM In Sodium Chloride 50 0.9% 50 ml @ 100 mls/hr IV Q24H [facility] Rx#:[id number] Vancomycin 1,000 mg In Sodium 250 Chloride 0.9% 250 ml @ 250 mls/ hr IV Q12H [facility] Rx#:[id number] Oral 800 480 Other: Meal Dinner Percent of Meal Consumed 75% Feeding Ability Independent # Voids 2 2 Exam: AVSS. No changes BRIANA. L/E: RESOLVING cellulitis and inflammation. AWAITS PICC line. Instructed about local wound care. AWAITS PAD assessment / treatmenT. Will see Dr. CHAVARRIA after discharge. A/P Narrative A/P Narrative: Assessment: Patient seen along with Gerhard WELDON Inpatient wound care nurse. Plan of care reviewed with Emili WELDON. Satisfactory response to local wound care and IV antibiotics. Cellulitis RIGHT great toe and foot resolving. Needs continuation of this treatment as out patient. Plan: O K for discharge with instructions about continuity of care f/u. To be seen at wound care clinic in ONE week. Please confirm and instruct patient about Dr. HO appointment. Time Spent With Patient Time: Total time spent is greater than 50% in coordination of care (as documented) at patient's floor/unit and/or counseling patient: Total time spent with greater than 50% in coordination of care (as documented) at patient's floor/unit and/or counseling patient:: 25 - 35 minutes
--- NOTE | 2020-12-25 11:42 | Discharge Summary ---
Discharge Provider Provider Patient information: Note initiated : 12/25/20 at 11:36 am Service Date, if different from initiated Date: [] Patient: John Schuster 70 y/o M admitted on 12/23/20 for Right foot wound. Chief Complaint: [] Date of admission: 12/23/20 15:48 Discharge date: 12/25/20 Primary care physician: Livan Jennings DO Consults: 12/23/20 Consult to Physician [CONS] Stat Comment: Consulting Provider: Antony Elliott Reason For Exam: Physician to Consult 12/23/20 19:00 Consult to Physician [CONS] Routine Comment: Consulting Provider: Khadar Bashir Reason For Exam: Physician to Consult Discharge Meds Discharge Medications Home Medications [place] 1 tab PO QDAY 11/12/20 [History Confirmed 12/23/20 Last Taken Unknown] ascorbic acid (vitamin C) 1,000 mg tablet 1 g PO QDAY tab 11/12/20 [History Confirmed 12/23/20 Last Taken Unknown] omeprazole 20 mg tablet,delayed release 20 mg PO QDAY 11/12/20 [History Confirmed 12/23/20 Last Taken Unknown] alpha lipoic acid 600 mg capsule 600 mg PO QDAY 11/17/20 [History Confirmed 12/23/20 Last Taken Unknown] blood sugar diagnostic #100 ea 11/17/20 [Rx Confirmed 12/23/20 Last Taken Unknown] blood-glucose meter #1 ea 11/17/20 [Rx Confirmed 12/23/20 Last Taken Unknown] cinnachroma-chromium, vitamin D 125mcg, vitamin K2, Selenium, vanadium, and cinnamon 2 tab PO DAILY 11/17/20 [History Confirmed 12/23/20 Last Taken Unknown] lancets 33 gauge #100 ea 11/17/20 [Rx Confirmed 12/23/20 Last Taken Unknown] loratadine-pseudoephedrine ER 10 mg-240 mg tablet,extended [id number] 1 tab PO QDAY PRN 11/17/20 [History Confirmed 12/23/20 Last Taken Unknown] pioglitazone 30 mg tablet 30 mg PO QDAY #60 tab 11/17/20 [Rx Confirmed 12/23/20 Last Taken Unknown] testosterone wellness supplement 2 tab PO DAILY 11/17/20 [History Confirmed 12/23/20 Last Taken Unknown] veggies and fruits supplement 6 tab PO DAILY 11/17/20 [History Confirmed 12/23/20 Last Taken Unknown] glipizide 5 mg tablet 5 mg PO BID #120 tab 11/18/20 [Rx Confirmed 12/23/20 Last Taken Unknown] bupropion HCl 150 mg tablet,12 hr sustained-release See Rx Instructions PO BID 90 Days #180 ea 12/22/20 [Rx Confirmed 12/23/20 Last Taken Unknown] gabapentin 100 mg capsule 100 - 300 mg PO QHS #90 cap 12/23/20 [Rx Confirmed 12/23/20 Last Taken Unknown] ertapenem 1 g IV Q24H 42 Days #40 ea 12/25/20 [Rx Last Taken Unknown] nicotine 14 mg TOPICAL DAILY@1000 #28 ea 12/25/20 [Rx Last Taken Unknown] nicotine (polacrilex) 2 mg BUCCAL Q1HP PRN #100 ea 12/25/20 [Rx Last Taken Unknown] COURSE Hospital Course Hospital course: Mr. Schuster is a 70 year old male with a history of diabetes mellitus type 2 on oral medications, tobacco use disorder, nonhealing right diabetic foot wound being followed by wound care clinic now admitted for other management diabetic foot wound which is now complicated by osteomyelitis of the first proximal phalanx of the right foot as well as second proximal phalanx. Patient endorses chills and high-grade temperatures but has not had a fever. In the ED, there was no leukocytosis, routine lab work was fairly unremarkable, CRP was 119. Patient's last hemoglobin was 9.9. 12/25 Discharged on Ertapenem, will get PICC tomorrow if that does not work I instructed the patient to go to the ED for Ertapenem until he can get a PICC placed. Unable to place a PICC before discharge due to staffing issues. The patient should get Ertapenem once a day. Infectious disease referral at discharge, IR referral for vascular evaluation and possible intervention for peripheral arterial disease, follow up with Dr. Tijerina for wound care. Follow up with primary care provider to optimized glycemic control for diabetes mellitus type 2. Hemoglobin A1C was 9.9. Weekly CBC, BMP, ALT, CRP while on Ertapenem. Physical exam Head: Atraumatic, normal inspection. Eyes: normal appearance, no scleral icterus. Neck: full ROM Respiratory: no respiratory distress. Cardiovascular: normal rate and rhythm, S1, S2. GI/Abdominal: soft, nontender, no guarding. Extremities: Right distal foot cellulitis improving, bandage over wound at plantar aspect of first metatarsal phalangeal joint. Neurological: CN II-XII intact, intact motor, intact sensation. Psychiatric: normal mood. Skin: warm, normal color Discharge diagnosis: Osteomyelitis of right toe Secondary discharge diagnosis: Diabetes mellitus type 2 Peripheral arterial disease Time Spent with Patient Time attestation: Total time spent providing and/or coordinating discharge services: EXAM Constitutional Vitals: Temp Pulse Resp BP Pulse Ox 97.1 F 84 16 98/61 95 12/25/20 07:51 12/25/20 07:51 12/25/20 07:51 12/25/20 07:51 12/25/20 07:51 Discharge Data Data Completed and Pending Labs on day of discharge: Labs from last 24 hours 12/25/20 08:09 Vancomycin Trough 7.1 Preliminary micro results at discharge 12/24/20 09:06 Gram Stain - Preliminary Foot - Right Tissue Culture - Preliminary Gram negative bacillus 12/23/20 19:10 MRSA Screen - Preliminary Foot - Right Discharge Plan Patient/Caregiver Discharge Instructions Activity: increase activity as tolerated Diet: Consistent Carbohydrate Prescriptions: New ertapenem 1 gram Recon Soln 1 g IV Q24H 42 Days Qty: 40 RF: 0 nicotine 14 mg/24 hr Patch 24 Hour 14 mg topical DAILY@1000 Qty: 28 RF: 2 nicotine (polacrilex) 2 mg Gum 2 mg buccal Q1HP PRN (Reason: Severe nicotine cravings) Qty: 100 RF: 2 Continued bupropion HCl 150 mg tablet sustained-release 12 hr See Rx Instructions PO BID 90 Days Qty: 180 RF: 1 gabapentin 100 mg capsule 100 - 300 mg PO QHS Qty: 90 RF: 1 alpha lipoic acid 600 mg capsule 600 mg PO QDAY RF: 0 cinnachroma-chromium, vitamin D 125mcg, vitamin K2, Selenium, vanadium, and cinnamon 2 tab PO DAILY RF: 0 testosterone wellness supplement 2 tab PO DAILY RF: 0 veggies and fruits supplement 6 tab PO DAILY RF: 0 loratadine-pseudoephedrine [AllerClear D-24hr] 10-240 mg tablet extended release 24 hr 1 tab PO QDAY PRN (Reason: Allergy Symptoms) RF: 0 (DME) blood-glucose meter [OneTouch Verio Meter] Misc See Rx Instructions .Route Qty: 1 RF: 0 (DME) lancets [OneTouch Delica Lancets] 33 gauge misc See Rx Instructions .Route Qty: 100 RF: 3 pioglitazone 30 mg tablet 30 mg PO QDAY Qty: 60 RF: 1 (DME) Blood Glucose Test Strip See Rx Instructions .Route Qty: 100 RF: 3 glipizide 5 mg tablet 5 mg PO BID Qty: 120 RF: 1 [place] 650 mg 1 tab PO QDAY RF: 0 omeprazole 20 mg tablet,delayed release (DR/EC) 20 mg PO QDAY RF: 0 ascorbic acid (vitamin C) 1,000 mg tablet 1 g PO QDAY RF: 0 Other Ambulatory Orders: [facility] (ONCE) Location: None Selected Ordered By: Khadar Bashir Follow Up Plan Follow up with: Livan Guerra MD [Physician] - 01/01/21 9:30 am (Please check in at 9:15 am) Livan Jennings DO [Primary Care Provider] - Angel Almeida MD [Physician] - (Management of osteomyelitis of right toe. Discharged on Ertapenem, might be able to deescalate antibiotic treatment, cultures pending at discharge. ) Patient Disposition: Home, Self-Care Discharge Orders: Discharge Order (Routine); Ordered 12/25/20 Ordered By: Antony BROWNE VTE Deep Vein Thrombosis/Pulmonary Embolism Present on Admission: Yes
== END 2020-12-25 15:47 | disposition home or self-care (01) | DRG 540 ==
LOC: ED 10:01 → MEDSUR 15:48
PROVIDERS: ADMIT Internal Medicine; ATTEND Internal Medicine